=== PATIENT | female | born 1995 | race African-American/Black ===

== ENCOUNTER 2024-01-31 15:36 | Emergency (ER) | payer OTHER ==
[~2024-01-31] VITALS: Ht 152.4 cm; Wt 83.0 kg
[2024-01-31] MEDS ORDERED: PRENATA CHEWAB1 EACH (16:27)
[2024-01-31] MEDS ORDERED: CEFDINIR300 MG PO (17:42)
[2024-01-31 17:53] VITALS: PULSE 80; RESP 16; TEMP 98.1; O2SAT 100
== END 2024-01-31 17:53 | disposition home or self-care (01) ==
LOC: FSED 15:46
DX: O26.891 Other specified pregnancy related conditions, first trimester (principal); R07.89 Other chest pain; R10.32 Left lower quadrant pain
CPT/HCPCS: 80048; 81003; 82553; 84484; 85025; 85379; 93005; 99283